=== PATIENT | female | born 1945 | race Caucasian/White ===

== ENCOUNTER 2016-02-21 19:45 | Emergency (ER) | payer OTHER ==
--- NOTE | 2016-02-21 19:48 | UCPHY ---
H & P Patient Type: New HPI/ROS: CHIEF COMPLAINT: Abdominal pain, vomiting, diarrhea HISTORY OF PRESENT ILLNESS: The patient is a 70-year-old female with a history of pancreatitis who presents for abdominal pain, vomiting, and diarrhea yesterday. The symptoms onset after she ate lunch at [employer]. She initially had crampy abdominal pain and then developed a few episodes of vomiting and diarrhea that resolved after she had nothing left in her stomach. She has not vomited since. Overnight she developed chills, myalgia, and mild fever. She has had decreased appetite but was able to eat jello today without vomiting. She has some abdominal discomfort but not pain. She denies urinary complaints, cough. She did not get a flu shot this year. Her temperature is 37.7 on presentation. REVIEW OF SYSTEMS: Aside from elements discussed in the HPI, a comprehensive 10-point review of systems was reviewed and is negative. PAST MEDICAL HISTORY: Hysterectomy, bilateral knee replacements, mitral valve prolapse, pancreatitis. SOCIAL HISTORY: Here with , nonsmoker, social alcohol use. VITAL SIGNS: Reviewed by me GENERAL: Well-developed, well-nourished, resting comfortably in no respiratory distress. HEENT: Atraumatic. Eyes: No icterus, no injection. Mouth: dry mucous membranes. No erythema or lesions. Neck: supple with no adenopathy. LUNGS: Clear to auscultation bilaterally, no wheezes, rhonchi or rales. CARDIAC: Split S2, soft systolic murmur probably consistent with mitral valve prolapse. Regular rate and rhythm, no rubs or gallops. ABDOMEN: RUQ tenderness. No guarding or rebound. Soft, nondistended, bowel sounds normal. BACK: No CVA tenderness. EXTREMITIES: No trauma. No edema. Range of motion is normal throughout. NEURO: Alert and oriented, grossly nonfocal. SKIN: Warm and dry, no rash. PSYCHIATRIC: Normal mentation, no agitation. Portions of this note were transcribed by a medical health researcher. I personally performed a history, physical exam, medical decision making, and confirmed accuracy of information the transcribed note. Source: Patient Exam Limitations: No limitations - Medical/Surgical History Hx Asthma: No Hx Chronic Respiratory Disease: No Hx Diabetes: No Hx Cardiac Disease: No Hx Renal Disease: No Hx Cirrhosis: No Hx Alcoholism: No Hx HIV/AIDS: No Hx Splenectomy or Spleen Trauma: No Other PMH: prolapsed bladder, RTKA 2011 - Family History Significant Family History: No pertinent family hx (Non-contributory. ) - Social History Smoking Status: Never smoked Constitutional: Initial Vital Signs Temperature (C) 37.7 C 02/21/16 20:07 Heart Rate 92 02/21/16 20:07 Respiratory Rate 14 02/21/16 20:07 Blood Pressure 119/78 02/21/16 20:07 O2 Sat (%) 96 02/21/16 20:07 O2 Delivery Mode Room Air Allergies/Adverse Reactions: diphenhydramine HCl [From Benadryl] Allergy (Verified 02/21/16 20:06) Other-Enter Comments hydroxyzine HCl [From Atarax] Allergy (Verified 02/21/16 20:06) Rash oxycodone HCl [From Percocet] Allergy (Verified 02/21/16 20:06) Itching Home Medications: Medication Instructions Recorded Hydrocodone/APAP 5/325 [[place] 1 tab PO Q6H PRN #10 tab 02/21/16 5/325 (RX)] Ondansetron Odt [Zofran Odt 4 mg 4 mg PO Q6 PRN #8 tab 02/21/16 (RX)] Medical Decision Making - Diagnostics Imaging: Study: CT of the abdomen/pelvis. Indication: N/V/D/pain. Results: No acute findings. The study was read by the radiologist, Dr. Chawla. I viewed the images myself on the PACS system. ED Course/Re-evaluation: An IV was established and labs ordered. 1L IV saline administered for hydration , 50mcg IV Fentanyl for pain, 4mg IV Zofran for nausea. Patient's blood work is negative. Influenza is negative. Urinalysis is pending at this time. Ultrasound is not currently available. An abdomen/pelvis CT was ordered. Differential Diagnosis: After obtaining the patient's history and performing an examination, differential diagnosis considered included but was not limited to appendicitis, cholecystitis, gastritis, pancreatitis, kidney stones, urinary tract infections and other causes. - Data Points Laboratory Results: Laboratory Results 02/21/16 20:10 02/21/16 20:10 02/21/16 02/21/16 02/21/16 22:00 21:00 20:10 WBC 6.07 10^3/uL (3.80-9.50) RBC 4.75 10^6/uL (4.18-5.33) Hgb 14.5 g/dL (12.6-16.3) Hct 43.1 % (38.0-47.0) MCV 90.7 fL (81.5-99.8) MCH 30.5 pg (27.9-34.1) MCHC 33.6 g/dL (32.4-36.7) RDW 13.1 % (11.5-15.2) Plt Count 195 10^3/uL (150-400) MPV 9.8 fL (8.7-11.7) Neut % (Auto) 83.8 H % (39.3-74.2) Lymph % (Auto) 9.7 L % (15.0-45.0) Hinds % (Auto) 5.6 % (4.5-13.0) Eos % (Auto) 0.5 L % (0.6-7.6) Baso % (Auto) 0.2 L % (0.3-1.7) Nucleat RBC Rel Count 0.0 % (0.0-0.2) Absolute Neuts (auto) 5.09 10^3/uL (1.70-6.50) Absolute Lymphs (auto) 0.59 L 10^3/uL (1.00-3.00) Absolute Monos (auto) 0.34 10^3/uL (0.30-0.80) Absolute Eos (auto) 0.03 10^3/uL (0.03-0.40) Absolute Basos (auto) 0.01 L 10^3/uL (0.02-0.10) Absolute Nucleated RBC 0.00 10^3/uL (0-0.01) Immature Gran % 0.2 % (0.0-1.1) Immature Gran # 0.01 10^3/uL (0.00-0.10) VBG Lactic Acid 0.5 L mmol/L (0.7-2.1) Sodium 140 mEq/L (134-144) Potassium 3.8 mEq/L (3.5-5.2) Chloride 105 mEq/L (97-110) Carbon Dioxide 25 mEq/l (22-31) Anion Gap 10 mEq/L (8-16) BUN 17 mg/dL (7-23) Creatinine 0.8 mg/dL (0.6-1.0) Estimated GFR > 60 Glucose 121 H mg/dL (70-100) Calcium 8.6 mg/dL (8.5-10.4) Total Bilirubin 0.8 mg/dL (0.1-1.4) Conjugated Bilirubin 0.3 mg/dL (0.0-0.5) Unconjugated Bilirubin 0.5 mg/dL (0.0-1.1) AST 22 IU/L (14-46) ALT 33 IU/L (9-52) Alkaline Phosphatase 66 IU/L (38-126) Total Protein 6.5 g/dL (6.3-8.2) Albumin 3.5 g/dL (3.5-5.0) Lipase 63.0 IU/L (23-300) Urine Color YELLOW Urine Appearance CLEAR Urine pH 7.0 (5.0-7.5) Ur Specific [place] 1.010 (1.002-1.030) Urine Protein NEGATIVE (NEGATIVE) Urine Ketones NEGATIVE (NEGATIVE) Urine Blood NEGATIVE (NEGATIVE) Urine Nitrate NEGATIVE (NEGATIVE) Urine Bilirubin NEGATIVE (NEGATIVE) Urine Urobilinogen 0.2 EU (0.2-1.0) Ur Leukocyte Esterase NEGATIVE (NEGATIVE) Urine Glucose NEGATIVE (NEGATIVE) Influenza Typ A,B (DFA) NEGATIVE FOR FLU (NEGATIVE) Medications Given: Discontinued Medications Acetaminophen/Hydrocodone Bitart ([place] 5/325mg Prepack#6) 1 btl TAKEHOME EDNOW ONE Stop: 02/21/16 22:35 Last Admin: 02/21/16 22:37 Dose: 1 btl Fentanyl (Sublimaze) 50 mcg IVP EDNOW ONE Stop: 02/21/16 20:25 Last Admin: 02/21/16 20:32 Dose: 50 mcg Sodium Chloride (Ns) 1,000 mls @ 0 mls/hr IV ONCE ONE PRN Reason: Wide Open Stop: 02/21/16 20:14 Last Admin: 02/21/16 20:20 Dose: 1,000 mls Sodium Chloride (Ns) 1,000 mls @ 0 mls/hr IV ONCE ONE PRN Reason: Wide Open Stop: 02/21/16 20:25 Last Admin: 02/21/16 21:13 Dose: Not Given Ondansetron HCl (Zofran) 4 mg IVP EDNOW ONE Stop: 02/21/16 20:14 Last Admin: 02/21/16 20:26 Dose: 4 mg Ondansetron HCl (Zofran Odt 4 Mg Prepack#2) 1 btl TAKEHOME EDNOW ONE Stop: 02/21/16 22:35 Last Admin: 02/21/16 22:37 Dose: 1 btl Departure - Departure Disposition: Home, Routine, Self-Care Clinical Impression: Abdominal pain, Nausea Condition: Good Instructions: Hydrocodone/Acetaminophen (By mouth), Ondansetron (By mouth), Acute Abdominal Pain (ED) Additional Instructions: For your abdominal discomfort, I suggested you start with a bland diet and advance as tolerated. This means start with clear liquids such as water, Gatorade, juice, flat non- caffeinated soda. If you tolerate clear liquids, then you may add bland foods such as bananas, rice, or toast. If you do not have any worsening of your symptoms, you may begin to resume a regular diet. Please be seen tomorrow by your primary care physician or return to urgent care. If you are 100% better you do not need a recheck, however, if you're still having discomfort I would like somebody to see you again. Return sooner if you develop worsening symptoms including nausea and vomiting not controlled with the Zofran, worsening pain, cough, chest pain, shortness of breath, urinary complaints, or other concerns. Also, you had 2 noncalcified nodules at the base of your lungs which need follow -up CT scan. Her primary care physician can help arrange this. Referrals: Rossana Melgar MD [Primary Care Provider] - As per Instructions Prescriptions: Hydrocodone/APAP 5/325 [[place] 5/325 (RX)] 1 tab PO Q6H PRN #10 tab PRN Reason: Pain Ondansetron Odt [Zofran Odt 4 mg (RX)] 4 mg PO Q6 PRN #8 tab PRN Reason: Nausea - PQRS PQRS Measurement: 134: Depression screening and followup, PRIME MD-PHQ2 (12 years and older) Over the last 2 weeks, how often have you been bothered by any of the following problems? 1. Feeling down, depressed, or hopeless? 2. Little interest or pleasure in doing things? [Patient answered no to both 1 and 2] 130: Documentation of medications. [Reviewed all patient medications, doses, route and frequency.] 226: Do you smoke? [No.] 47: 65 and older: Advanced care planning. Patient designates surrogate decision maker as [parent] [spouse] [ ]. [Patient refused.] [Patient has advanced directive.] 51: 18 years old and older with diagnosis of COPD, spirometry performance. [Patient has no history of COPD] 52: 18 years old and older with COPD and symptoms of COPD or FEV1<60% predicted prescribed a B Agonist. [Patient has no history of COPD] Report Scribed for: Ilsa Gaona Report Scribed by: Ney Powres Date of Report: 02/21/16 Time of Report: 20:20
[2016-02-21 20:10] VITALS: O2SAT 96
[2016-02-21] MEDS ORDERED: NS 1,000 ML IV ONE ×2 (20:13→20:24)
[2016-02-21] MEDS ORDERED: ONDANSETRON 4 MG/2 ML VIAL IVP ONE (20:13)
[2016-02-21 20:17] LABS: % IMMATURE GRANULYOCYTES 0.2 % (0.0-1.1); ABSOLUTE IMMATURE GRANULOCYTES 0.01 10^3/uL (0.00-0.10); ADD DIFF? NO; ADD MORPH? NO; ADD SCAN? NO; ATYPICAL LYMPHOCYTE FLAG 10 (0-99); FRAGMENT RBC FLAG 0 (0-99); HEMATOCRIT 43.1 % (38.0-47.0); HEMOGLOBIN 14.5 g/dL (12.6-16.3); LEFT SHIFT FLG 0 (0-99); LIPEMIA HEMOLYSIS FLAG 80 (0-99); MEAN CELL HEMOGLOBIN 30.5 pg (27.9-34.1); MEAN CELL HEMOGLOBIN CONCENTR. 33.6 g/dL (32.4-36.7); MEAN CELL VOLUME 90.7 fL (81.5-99.8); MEAN PLATELET VOLUME 9.8 fL (8.7-11.7); PLATELET CLUMPS FLAG 10 (0-99); PLATELET COUNT 195 10^3/uL (150-400); RED BLOOD CELL COUNT 4.75 10^6/uL (4.18-5.33); RED CELL DISTRIBUTION WIDTH 13.1 % (11.5-15.2)
[2016-02-21] MEDS ORDERED: fentaNYL 100 MCG/2 ML INJ IVP ONE (20:24)
[2016-02-21 20:37] LABS: ALANINE AMINOTRANSFERASE 33 IU/L (9-52); ALBUMIN 3.5 g/dL (3.5-5.0); ALKALINE PHOSPHATASE 66 IU/L (38-126); ANION GAP 10 mEq/L (8-16); ASPARTATE AMINOTRANSFERASE 22 IU/L (14-46); BILIRUBIN,TOTAL 0.8 mg/dL (0.1-1.4); BILIRUBIN-CONJUGATED 0.3 mg/dL (0.0-0.5); BILIRUBIN-UNCONJUGATED 0.5 mg/dL (0.0-1.1); CALCIUM 8.6 mg/dL (8.5-10.4); CARBON DIOXIDE 25 mEq/l (22-31); CHLORIDE 105 mEq/L (97-110); CREATININE 0.8 mg/dL (0.6-1.0); GLOMERULAR FILTRATION RATE > 60; GLUCOSE 121 mg/dL (70-100); POTASSIUM 3.8 mEq/L (3.5-5.2); SODIUM 140 mEq/L (134-144); TOTAL PROTEIN 6.5 g/dL (6.3-8.2)
[2016-02-21 22:11] LABS: COLOR YELLOW; LEUKOCYTE ESTERASE,URINE NEGATIVE (NEGATIVE); NITRITE,URINE NEGATIVE (NEGATIVE)
[2016-02-21] MEDS ORDERED: HYDROCOD/APAP 5/325 PREPACK#6 BTL TAKEHOME ONE (22:34)
[2016-02-21] MEDS ORDERED: ONDANSETRON 4MG PREPACK#2 BTL TAKEHOME ONE (22:34)
[2016-02-21 22:40] VITALS: BP 126/87; PULSE 88; RESP 16
--- NOTE | 2016-02-21 22:45 | CT ---
CT Scan of the Abdomen and Pelvis (With Contrast) February 21, 2016 Indication: Upper abdominal pain. Possible pancreatitis Technique: No oral or rectal contrast. 80 mL of Isovue 300 were given intravenously by machine power injection. Multidetector helical CT imaging was performed from the diaphragm to the symphysis pubis . Dose reduction techniques were utilized. Findings: The pancreas homogeneously enhances. No peripancreatic stranding or edema. Pancreatic duct is normal caliber and tapers normally to the major papilla. The gallbladder is upper normal size. No gallbladder wall thickening or perigallbladder fat stranding. Liver has minimal decreased attenuation , suggestive of hepatic steatosis. Numerous fluid attenuation cysts are scattered throughout the righ t and left lobe of the liver. Portal venous system is patent. No common bile duct stone. Bowel pattern is normal. Scattered diverticula are present throughout the sigmoid colon. No acute div erticulitis, free fluid, abscess, lymphadenopathy or mass. The adrenal glands and kidneys are normal, except for a benign 2-cm cyst in the left kidney. No hydro nephrosis or ureteral calculi. The urinary bladder is nearly completely empty. The uterus is either a trophic or surgically absent. No adnexal mass. The lung bases are clear, except for minimal posterior dependent atelectasis. Two round well-circumsc ribed noncalcified pulmonary nodules are present in the left lower lobe. The largest measures 6 x 5 m m, on image 17 of series 3. Heart size is normal. Abdominal aorta is normal caliber with moderate raymundo cified plaque. No fracture or bone lesion. Impression: 1. No acute intra-abdominal inflammatory process or CT evidence of acute pancreatitis. 2. Sigmoid diverticulosis. No acute diverticulitis or free fluid. 3. Two noncalcified probably benign pulmonary nodules in the left lower lobe. Recommend follow-up low dose noncontrast chest CT in 6 months to assure stability. Comment: The findings and recommendations were discussed with Dr. Ilsa Gaona shortly after study c ompletion at 10:28 p.m. on February 21, 2016.
[2016-02-21 22:49] VITALS: TEMP 98.7
== END 2016-02-21 22:49 | disposition home or self-care (01) ==
LOC: CED 19:45
DX: R10.9 Unspecified abdominal pain (principal); R11.10 Vomiting, unspecified; R19.7 Diarrhea, unspecified
CPT/HCPCS: 74177; 96361; 96374; 96375; G0463; J3010; 80048-PO; 80076-PO; 81003-PO; 83605-PO; 83690-PO; 85025-PO; 87400-PO

== ENCOUNTER → 2016-03-12 | Outpatient (CLI) | payer OTHER ==
--- NOTE | 2016-03-12 16:53 | MA ---
Screening Digital Mammogram With iCAD Analysis Clinical Indications: Routine screening. Technique: Standard cephalocaudal and mediolateral oblique projections were obtained. This examinatio n was processed by the iCAD computer aided detection system. Comparison: January 2013, September 2011, September 2010, August 2009, May 2008, May 2007. Breast density: Type B; Scattered fibroglandular densities. Findings: CAD was reviewed. No masses, suspicious calcifications or other signs of malignancy are id entified. There has been no significant change in the appearance of either breast. Impression: Negative mammogram. BI-RADS 1. Recommendation: Routine mammographic screening in one year. [facility] will send a result letter to the patient. Negative mammography should not preclude additional workup of a clinically suspicious finding. The patient's information is entered into a reminder system with a target due date for her next mammo gram.
== END ==
LOC: FIMAGING 13:44
DX: Z12.31 Encounter for screening mammogram for malignant neoplasm of breast (principal)
CPT/HCPCS: G0202

== ENCOUNTER → 2017-04-01 | Outpatient (CLI) | payer OTHER | LOC: FIMAGING 14:40 | PROVIDERS: ATTEND Family Medicine | DX: Z12.31 Encounter for screening mammogram for malignant neoplasm of breast (principal); Z13.820 Encounter for screening for osteoporosis ==

== ENCOUNTER → 2018-04-01 | Outpatient (CLI) | payer OTHER | LOC: GIMAGING 11:19 → EDSTATUS 15:43 | PROVIDERS: ATTEND Family Medicine | DX: J98.09 Other diseases of bronchus, not elsewhere classified (principal) | CPT/HCPCS: 71046-PO ==

== ENCOUNTER → 2018-06-18 | Outpatient (CLI) | payer OTHER | LOC: FLAB 11:01 | PROVIDERS: ATTEND Internal Medicine Infectious Disease | DX: J40 Bronchitis, not specified as acute or chronic (principal); R91.1 Solitary pulmonary nodule ==

== ENCOUNTER → 2018-07-07 | Outpatient (CLI) | payer OTHER | LOC: FIMAGING 10:42 | PROVIDERS: ATTEND Internal Medicine Infectious Disease | DX: R05 Cough (principal); R91.8 Other nonspecific abnormal finding of lung field ==